=== PATIENT | female | born 1975 | race African-American/Black ===

== ENCOUNTER 2024-09-28 16:08 | Emergency (ER) | payer MEDICAID ==
[~2024-09-28] VITALS: Ht 165.1 cm; Wt 91.0 kg
[2024-09-28 16:11] VITALS: BP 138/80; PULSE 91; RESP 18; TEMP 97.6; O2SAT 100
[2024-09-28] MEDS ORDERED: ONDANSETRON 4MG ODT PO STA (16:24)
== END 2024-09-28 21:31 | disposition left against medical advice (07) ==
LOC: ER 16:08
DX: R11.2 Nausea with vomiting, unspecified (principal); F41.9 Anxiety disorder, unspecified; R53.1 Weakness
CPT/HCPCS: 93005; 99283